=== PATIENT | female | born 1995 ===

== ENCOUNTER 2017-05-03 14:46 | Emergency (ER) | payer MEDICAID ==
[2017-05-03 14:46] VITALS: BMI 29.9
[2017-05-03 15:00] VITALS: BP 152/83; PULSE 112; RESP 19; TEMP 98.9; O2SAT 98
[2017-05-03] MEDS ORDERED: Sodium Chloride 0.9% 1,000 ML IV STA (15:10)
--- NOTE | 2017-05-03 15:22 | ED PDOC ---
HPI: CCC, URI, Sore Throat Time Seen by Provider: 05/03/17 15:04 Chief Complaint (Nursing): Flu-like Symptoms Chief Complaint (Provider): Flu-like Symptoms History Per: Patient History/Exam Limitations: no limitations Onset/Duration Of Symptoms: Days (x4) Current Symptoms Are (Timing): Still Present Additional Complaint(s): 21 year old female with previous medical history of asthma, who presents to the emergency department with a complaint of cough associated with congestion, fever , vomiting, nausea and epigastric pain ongoing for 4 days. Denied any chest pain , shortness of breath, bloody cough, diarrhea, recent travel or sick contacts. Patient was seen at [facility] ED on 04/30/17 for similar symptoms and instructed to continue DayQuil but felt no alleviation of symptoms. PMD: none provided Past Medical History Reviewed: Historical Data, Nursing Documentation, Vital Signs Vital Signs: Last Vital Signs Temp 98.9 F 05/03/17 14:55 Pulse 112 H 05/03/17 14:55 Resp 19 05/03/17 14:55 BP 152/83 H 05/03/17 14:55 Pulse Ox 98 05/03/17 17:14 - Medical History PMH: Asthma, Hypercholesterolemia - Surgical History Surgical History: Tonsillectomy Denies: No Surg Hx - Family History Family History: States: Unknown Family Hx - Social History Current smoker - smoking cessation education provided: No Ex-Smoker (has not smoked in the last 12 months): No Alcohol: None Drugs: Denies - Immunization History Hx Tetanus Toxoid Vaccination: No Hx Influenza Vaccination: No Hx Pneumococcal Vaccination: No - Home Medications Home Medications: Ambulatory Orders Medication Instructions Recorded Benzonatate [Tessalon Perle] 100 mg PO Q8 PRN #30 capsule 05/03/17 Ondansetron ODT [Zofran ODT] 4 mg PO TID #20 odt 05/03/17 - Allergies Allergies/Adverse Reactions: Allergies Allergy/AdvReac Type Severity Reaction Status Date / Time No Known Allergies Allergy Verified 05/03/17 14:55 Review of Systems ROS Statement: Except As Marked, All Systems Reviewed And Found Negative Constitutional: Positive for: Fever ENT: Positive for: Nose Congestion Cardiovascular: Negative for: Chest Pain Respiratory: Positive for: Cough. Negative for: Shortness of Breath, Hemoptysis Gastrointestinal: Positive for: Nausea, Vomiting, Abdominal Pain (epigastric). Negative for: Diarrhea Physical Exam - Reviewed Nursing Documentation Reviewed: Yes Vital Signs Reviewed: Yes - Physical Exam Appears: Positive for: Well, Non-toxic, No Acute Distress Head Exam: Positive for: ATRAUMATIC, NORMAL INSPECTION, NORMOCEPHALIC Skin: Positive for: Normal Color. Negative for: Rash Eye Exam: Positive for: Normal appearance, EOMI, PERRL. Negative for: Nystagmus ENT: Positive for: Normal ENT Inspection, Pharynx Is (within normal limits). Negative for: Nasal Congestion, Pharyngeal Erythema Neck: Positive for: Normal, Painless ROM Cardiovascular/Chest: Positive for: Regular Rate, Rhythm, Chest Non Tender Respiratory: Positive for: Normal Breath Sounds. Negative for: Decreased Breath Sounds, Respiratory Distress Gastrointestinal/Abdominal: Positive for: Normal Exam, Soft. Negative for: Tenderness Back: Positive for: Normal Inspection Extremity: Positive for: Normal ROM Neurologic/Psych: Positive for: Alert (x3), Oriented - Laboratory Results Result Diagrams: 05/03/17 15:55 05/03/17 15:55 - ECG O2 Sat by Pulse Oximetry: 98 (RA) Pulse Ox Interpretation: Normal Medical Decision Making Medical Decision Making: Initial Impression: URI Initial Plan: * VBG * CMP * Lipase * Urine * CBC * CXR * NS 1,000ml IV per 1,000mls/hr * Pepcid 20mg IVP * Zofran inj 4mg IVP * Blood culture * Urinalysis ____ Time: 1643 --CXR FINDINGS: LUNGS: No active pulmonary disease. PLEURA: No significant pleural effusion identified. No pneumothorax apparent. CARDIOVASCULAR: Normal. OSSEOUS STRUCTURES: No significant abnormalities. VISUALIZED UPPER ABDOMEN: Normal. OTHER FINDINGS: None. IMPRESSION: No active disease. Scribe Attestation: Documented by Susu Gonzalez, acting as a scribe for Jaiden Long PA-C. Provider Scribe Attestation: All medical record entries made by the Scribe were at my direction and personally dictated by me. I have reviewed the chart and agree that the record accurately reflects my personal performance of the history, physical exam, medical decision making, and the department course for this patient. I have also personally directed, reviewed, and agree with the discharge instructions and disposition. Disposition - Clinical Impression Clinical Impression: Viral syndrome - Patient ED Disposition Is Patient to be Admitted: No - Disposition Referrals: [facility] [Outside] Disposition: Routine/Home Disposition Time: 17:13 Condition: IMPROVED Prescriptions: Benzonatate [Tessalon Perle] 100 mg PO Q8 PRN #30 capsule PRN Reason: Cough Ondansetron ODT [Zofran ODT] 4 mg PO TID #20 odt Instructions: Viral Syndrome (ED) Forms: [employer] (Fijian), [facility] ED School/Work Excuse Print Language: [place] ISLANDER
[2017-05-03 15:59] LABS: BASO % 0.4 % (0.0-2.0); EOS # 0.2 K/uL (0.0-0.7); EOS % 2.4 % (0.0-4.0); HEMOGLOBIN 10.8 g/dL (12.0-16.0); LYMPH # 1.7 K/uL (1.0-4.3); LYMPH % 21.5 % (20.0-40.0); MEAN CELL VOLUME 72.3 fl (81.0-99.0); MEAN CORPUSCULAR HEMOGLOBIN 22.8 pg (27.0-31.0); MEAN CORPUSCULAR HGB CONC 31.5 g/dL (33.0-37.0); MONO # 0.7 K/uL (0.0-0.8); MONO % 8.6 % (0.0-10.0); NEUT # 5.3 K/uL (1.8-7.0); NEUT % 67.1 % (50.0-75.0); NRBC % 0.1 % (0.0-0.0); RBC 4.73 Mil/uL (3.80-5.20); RED CELL DISTRIBUTION WIDTH 15.6 % (11.5-14.5); WHITE BLOOD COUNT 7.9 K/uL (4.8-10.8)
[2017-05-03 16:05] LABS: SQUAMOUS EPITHIAL 6 /hpf (0-5); URINE BILIRUBIN NEGATIVE (NEGATIVE); URINE BLOOD NEGATIVE (NEGATIVE); URINE CLARITY SLIGHTY-CLOUDY (Clear); URINE COLOR YELLOW (YELLOW); URINE GLUCOSE (UA) NEG (Normal); URINE LEUKOCYTE ESTERASE NEG Leu/uL (Negative); URINE NITRATE NEGATIVE (NEGATIVE); URINE PROTEIN NEGATIVE (NEGATIVE); URINE UROBILINOGEN 0.2-1.0 mg/dL (0.2-1.0)
[2017-05-03 16:07] LABS: VENOUS BLOOD GAS PCO2 45 mmHg (40-60); VENOUS BLOOD GAS PO2 56 mm/Hg (30-55); VENOUS BLOOD PH 7.38 (7.32-7.43)
[2017-05-03 16:18] LABS: ALB/GLOB RATIO 1.2 (1.0-2.1); ALBUMIN 4.3 g/dL (3.5-5.0); ALT/SGPT 36 U/L (9-52); AST/SGOT 23 U/L (14-36); BLOOD UREA NITROGEN 8 mg/dl (7-17); CALCIUM 9.5 mg/dL (8.4-10.2); GFR AFRICAN-AMERICAN > 60; GFR NON-AFRICAN AMERICAN > 60; LIPASE 47 U/L (23-300)
--- NOTE | 2017-05-03 17:08 | RAD ---
HISTORY: cough COMPARISON: No prior. TECHNIQUE: Chest PA and lateral FINDINGS: LUNGS: No active pulmonary disease. PLEURA: No significant pleural effusion identified. No pneumothorax apparent. CARDIOVASCULAR: Normal. OSSEOUS STRUCTURES: No significant abnormalities. VISUALIZED UPPER ABDOMEN: Normal. OTHER FINDINGS: None. IMPRESSION: No active disease.
== END 2017-05-03 17:30 | disposition home or self-care (01) ==
LOC: H.ER 14:46
DX: B34.9 Viral infection, unspecified (principal); E78.00 Pure hypercholesterolemia, unspecified; J45.909 Unspecified asthma, uncomplicated; Z87.891 Personal history of nicotine dependence
CPT/HCPCS: 71020; 80053; 81003; 81025; 82803; 83690; 85025; 87040; 87086; 96361; 96374; 96375; 99282; J2405; J7040

== ENCOUNTER 2017-05-18 19:44 | Emergency (ER) | payer MEDICAID ==
[2017-05-18 19:45] VITALS: BMI 29.9
[2017-05-18 20:14] VITALS: BP 138/84; PULSE 89; RESP 16; TEMP 98; O2SAT 100
[2017-05-18] MEDS ORDERED: Sodium Chloride 0.9% 1,000 ML IV STA (20:37)
--- NOTE | 2017-05-18 21:05 | ED PDOC ---
HPI: Dental Pain/Injury Chief Complaint (Provider): Dental Pain, Nausea, Abdominal Pain, Vomiting History Per: Patient History/Exam Limitations: no limitations Onset/Duration Of Symptoms: Hrs Current Symptoms Are (Timing): Still Present Quality: "Pain" Additional Complaint(s): 21 year old female presenting to the ED complaining of a left lower toothache x1 week. The patient states that she has been taking motrin around the clock which has not offered much relief. She reports that this morning she applied advil liquid gel on the tooth and shortly after took 2 advils by mouth. The patient states that immediately after she developed abdominal epigastric pain, nausea and multiple episodes of vomiting. Patient states her last bowel movement was yesterday. Denies melena, hematochezia, bright red blood per rectum , hematemesis, fever, chest pain, shortness of breath. Non [facility] Provider <Jaiden Long - Last Filed: 05/19/17 00:01> <Donna Guerra PA-C - Last Filed: 05/19/17 01:08> Time Seen by Provider: 05/18/17 20:16 Chief Complaint (Nursing): Dental Pain Past Medical History Reviewed: Historical Data, Nursing Documentation, Vital Signs Vital Signs: Last Vital Signs Temp 98.0 F 05/18/17 20:12 Pulse 89 05/18/17 20:12 Resp 16 05/18/17 20:12 BP 138/84 05/18/17 20:12 Pulse Ox 100 05/18/17 20:12 - Medical History PMH: Asthma, Hypercholesterolemia - Surgical History Surgical History: Tonsillectomy - Family History Family History: States: Unknown Family Hx - Living Arrangements Living Arrangements: With Family - Immunization History Hx Tetanus Toxoid Vaccination: No Hx Influenza Vaccination: No Hx Pneumococcal Vaccination: No <Jaiden Long - Last Filed: 05/19/17 00:01> Vital Signs: Last Vital Signs Temp 98.0 F 05/18/17 20:12 Pulse 89 05/18/17 20:12 Resp 16 05/18/17 20:12 BP 138/84 05/18/17 20:12 Pulse Ox 100 05/19/17 00:02 <Donna Guerra PA-C - Last Filed: 05/19/17 01:08> - Home Medications Home Medications: Ambulatory Orders Medication Instructions Recorded Benzonatate [Tessalon Perle] 100 mg PO Q8 PRN #30 capsule 05/03/17 Ondansetron ODT [Zofran ODT] 4 mg PO TID #20 odt 05/03/17 Amoxicillin [Amoxil 500 mg Cap] 500 mg PO TID #30 cap 05/18/17 Esomeprazole Magnesium [Nexium] 40 mg PO DAILY #30 capsule. 05/19/17 traMADol [Ultram] 25 mg PO BID PRN #14 tab 05/19/17 - Allergies Allergies/Adverse Reactions: Allergies Allergy/AdvReac Type Severity Reaction Status Date / Time No Known Allergies Allergy Verified 05/03/17 14:55 Review of Systems ENT: Positive for: Other (tooth pain) Gastrointestinal: Positive for: Nausea, Vomiting, Abdominal Pain. Negative for : Melena, Hematochezia <Jaiden Long E - Last Filed: 05/19/17 00:01> Physical Exam - Reviewed Nursing Documentation Reviewed: Yes Vital Signs Reviewed: Yes - Physical Exam Appears: Positive for: Non-toxic, No Acute Distress Head Exam: Positive for: NORMAL INSPECTION Skin: Positive for: Normal Color, Warm, Dry. Negative for: Rash Eye Exam: Positive for: Normal appearance, EOMI, PERRL. Negative for: Nystagmus ENT: Positive for: Normal ENT Inspection, Tonsillar Exudate, Other (left lateral incisor with dental carry minimal gingival swelling) Neck: Positive for: Normal, Painless ROM, Supple Cardiovascular/Chest: Positive for: Regular Rate, Rhythm, Chest Non Tender. Negative for: Tachycardia Respiratory: Positive for: Normal Breath Sounds. Negative for: Rales, Rhonchi, Wheezing, Respiratory Distress Gastrointestinal/Abdominal: Positive for: Normal Exam. Negative for: Tenderness , Guarding, Rebound Back: Positive for: Normal Inspection. Negative for: L CVA Tenderness, R CVA Tenderness Extremity: Positive for: Normal ROM. Negative for: Tenderness, Deformity, Swelling Neurologic/Psych: Positive for: Alert, Oriented, Gait <Jaiden Long E - Last Filed: 05/19/17 00:01> - Laboratory Results Result Diagrams: 05/18/17 21:27 05/18/17 21:27 Urine POC: Negative - ECG O2 Sat by Pulse Oximetry: 100 (RA) Pulse Ox Interpretation: Normal - Progress ED Course And Treament: 2150 LFTs are elevated. Pt. states she drinks alcohol occassionally. Reports pain has improved. Abd US ordered. <MercedesJaiden Kodi - Last Filed: 05/19/17 00:01> - Laboratory Results Result Diagrams: 05/18/17 21:27 05/18/17 21:27 <Donna Guerra PA-C - Last Filed: 05/19/17 01:08> Medical Decision Making Medical Decision Makin Initial Impression 21 year old female presenting with toothache, abdominal pain, nausea and vomiting Initial Plan: * CMP * Lipase * Upreg * CBC * Pepcid 40mg PO * Zofran 4mg PO * Reevaluation Documented by Lucy Brandt acting as a scribe for Jaiden Long PA-C. All medical record entries made by the Scribe were at my direction and personally dictated by me. I have reviewed the chart and agree that the record accurately reflects my personal performance of the history, physical exam, medical decision making, and the department course for this patient. I have also personally directed, reviewed, and agree with the discharge instructions and disposition. <Jaiden Long - Last Filed: 05/19/17 00:01> Medical Decision Making: US abdomen : FINDINGS: Liver: The liver is diffusely increased in echogenicity but unremarkable in size. No intrahepatic bile duct dilation. Gallbladder: No acute findings. No gallstones. Common bile duct: No stones. No dilation, measuring 3.7 mm. Pancreas: Visualization of the pancreas is limited by overlying bowel gas. Right kidney: No acute findings. No obstructing stones. No solid mass. No hydronephrosis. The abdominal aorta is non-aneurysmal, the IVC is patent. IMPRESSION: Findings suggesting of fatty infiltration of the liver. Limited evaluation of the pancreas, secondary to overlying bowel gas. Otherwise, unremarkable sonographic evaluation of the right upper quadrant, as detailed above. Dictated and Authenticated by: Yadira Ragsdale MD On re-evaluation, patient reports improvement of symptoms, denies any abdominal pain, nausea or vomiting. On exam, patient remains AAOx3, in no acute distress. Lungs clear to auscultation, cardiac RRR, abdomen soft, non-tender, repeat neuro exam shows no focal findings. Diagnostic results d/w the patient in great detail. Diagnosis of gastritis d/w the patient. Advised to avoid taking nsaids for pain. Based on history, exam and diagnostic results, plan will be for outpatient follow up. Patient instructed to follow-up with pmd and dentist in 1-2 days without fail. Advised to take medication as prescribed. Return to the emergency room at any time for any new or worsening symptoms. Patient states she fully agrees with and understands discharge instructions. States that she agrees with the plan and disposition. Verbalized and repeated discharge instructions and plan. I have given the patient opportunity to ask any additional questions. <Donna Guerra PA-C - Last Filed: 05/19/17 01:08> Disposition - Patient ED Disposition Is Patient to be Admitted: Transfer of Care (Signed out to Charlie CAMPOS pending US report and final disposition.) - Disposition Disposition Time: 00:00 <Jaiden Long - Last Filed: 05/19/17 00:01> - Patient ED Disposition Is Patient to be Admitted: No Counseled Patient/Family Regarding: Studies Performed, Diagnosis, Need For Followup, Rx Given - Disposition Disposition: Routine/Home <Donna Guerra PA-C - Last Filed: 05/19/17 01:08> - Clinical Impression Clinical Impression: Dental caries, Abdominal pain, Transaminitis - Disposition Condition: IMPROVED Additional Instructions: Thank you for letting us take care of you today. You were treated for abdominal pain, gastritis, elevated LFTs, toothache. The emergency medical care you received today was directed at your acute symptoms. If you were prescribed any medication, please fill it and take as directed. It may take several days for your symptoms to resolve. Return to the Emergency Department if your symptoms worsen, do not improve, or if you have any other problems. Please contact your doctor and the dentist in 2 days for re-evaluation and follow up. Bring any paperwork you were given at discharge with you along with any medications you are taking to your follow up visit. Our treatment cannot replace ongoing medical care by a primary care provider (PCP) outside of the emergency department. Thank you for allowing the [facility] team to be part of your care today. Prescriptions: Amoxicillin [Amoxil 500 mg Cap] 500 mg PO TID #30 cap Esomeprazole Magnesium [Nexium] 40 mg PO DAILY #30 capsule. traMADol [Ultram] 25 mg PO BID PRN #14 tab PRN Reason: Pain, Moderate (4-7) Instructions: Gastritis (ED), Toothache (ED) Forms: [employer] (Wallisian), [facility] ED School/Work Excuse Print Language: AMHARIC - PA / MATERIAL HANDLING TECHNICIAN / Resident Statement MD/DO has reviewed & agrees with the documentation as recorded. <Charlie CAMPOS,Donna Ramsay - Last Filed: 05/19/17 01:08>
[2017-05-18 21:31] LABS: BASO # 0.1 K/uL (0.0-0.2); BASO % 0.6 % (0.0-2.0); EOS # 0.2 K/uL (0.0-0.7); EOS % 1.4 % (0.0-4.0); HEMOGLOBIN 10.9 g/dL (12.0-16.0); LYMPH # 2.1 K/uL (1.0-4.3); LYMPH % 18.8 % (20.0-40.0); MEAN CELL VOLUME 71.3 fl (81.0-99.0); MEAN CORPUSCULAR HEMOGLOBIN 22.4 pg (27.0-31.0); MEAN CORPUSCULAR HGB CONC 31.5 g/dL (33.0-37.0); MEAN PLATELET VOLUME 7.1 fl (7.2-11.7); MONO # 0.8 K/uL (0.0-0.8); MONO % 6.8 % (0.0-10.0); NEUT # 8.2 K/uL (1.8-7.0); NEUT % 72.4 % (50.0-75.0); NRBC % 0.2 % (0.0-0.0); RBC 4.86 Mil/uL (3.80-5.20); RED CELL DISTRIBUTION WIDTH 15.9 % (11.5-14.5); WHITE BLOOD COUNT 11.3 K/uL (4.8-10.8)
[2017-05-18 21:50] LABS: ALB/GLOB RATIO 1.1 (1.0-2.1); ALBUMIN 4.4 g/dL (3.5-5.0); AST/SGOT 74 U/L (14-36); BLOOD UREA NITROGEN 10 mg/dl (7-17); CALCIUM 9.6 mg/dL (8.4-10.2); GFR AFRICAN-AMERICAN > 60; GFR NON-AFRICAN AMERICAN > 60
[2017-05-18 21:51] LABS: ALT/SGPT 106 U/L (9-52); LIPASE 62 U/L (23-300)
--- NOTE | 2017-05-19 08:53 | US ---
HISTORY: epigastric pain, elevated liver enzymes COMPARISON: None. TECHNIQUE: Sonographic evaluation of the right upper quadrant of the abdomen. FINDINGS: LIVER: Measures 16.3 cm in length, upper limits of normal. Increased echogenicity of the liver parenchyma. No mass. No intrahepatic bile duct dilatation. GALLBLADDER: Unremarkable. No gallstones. COMMON BILE DUCT: Measures 4 mm. No stones. No dilatation. PANCREAS: Unremarkable as visualized. No mass. No ductal dilatation. RIGHT KIDNEY: Measures clinical 0.9 x 6.3 x 4.6 cm in length. Normal echogenicity. No calculus, mass, or hydronephrosis. AORTA: No aneurysmal dilatation. IVC: Unremarkable. OTHER FINDINGS: None . IMPRESSION: Hepatic steatosis
== END 2017-05-19 01:37 | disposition home or self-care (01) ==
LOC: H.ER 19:44
DX: K29.70 Gastritis, unspecified, without bleeding (principal); K02.9 Dental caries, unspecified; E78.00 Pure hypercholesterolemia, unspecified; J45.909 Unspecified asthma, uncomplicated; K76.0 Fatty (change of) liver, not elsewhere classified

== ENCOUNTER 2018-05-07 01:18 | Emergency (ER) | payer MEDICAID, OTHER ==
[2018-05-07 01:19] VITALS: BMI 29.9
[2018-05-07 01:45] VITALS: RESP 16
[2018-05-07] MEDS ORDERED: Albuterol-Ipratrop 3 mg / 0.5 (3 ml) UD INH STA (05:21)
[2018-05-07] MEDS ORDERED: Sodium Chloride 0.9% 1,000 ML IV SCH (05:30)
--- NOTE | 2018-05-07 05:34 | ED PDOC ---
HPI: CCC, URI, Sore Throat Time Seen by Provider: 05/07/18 04:02 Chief Complaint (Nursing): Cough, Cold, Congestion Chief Complaint (Provider): cough, fever, n/v History Per: Patient History/Exam Limitations: no limitations Onset/Duration Of Symptoms: Days Current Symptoms Are (Timing): Still Present Additional Complaint(s): 22 y/o Female with hx of asthma and HL who presents with cough, fever, N/V. Patient states that about 3 weeks ago she began having runny nose, nasal congestion, sore throat and cough. She used over the counter cough medication with improvement in her symptoms. She said the cough returned about 3 days ago and is dry but has been using OTC cough medication, DayQuil and NyQuil with no improvement. She said that she has also had N/V for the past week, vomiting everything that she eats. Sometimes it is post-tussive, but also occurs after eating. She has chest pain that occurs with coughing. Denies fever, dizziness, palpitations, abdominal pain, radiation of chest pain. Mild SOB intermittently. No diarrhea. Past Medical History Reviewed: Historical Data, Nursing Documentation, Vital Signs Vital Signs: Last Vital Signs Temp 98.3 F 05/07/18 01:42 Pulse 86 05/07/18 01:42 Resp 16 05/07/18 01:42 BP 144/91 H 05/07/18 01:42 Pulse Ox 100 05/07/18 01:42 - Medical History PMH: Asthma, Hypercholesterolemia - Surgical History Surgical History: Tonsillectomy - Family History Family History: States: Unknown Family Hx - Immunization History Hx Tetanus Toxoid Vaccination: No Hx Influenza Vaccination: No Hx Pneumococcal Vaccination: No - Home Medications Home Medications: Ambulatory Orders Medication Instructions Recorded Benzonatate [Tessalon Perle] 100 mg PO Q8 PRN #30 capsule 05/03/17 Ondansetron ODT [Zofran ODT] 4 mg PO TID #20 odt 05/03/17 Amoxicillin [Amoxil 500 mg Cap] 500 mg PO TID #30 cap 05/18/17 Esomeprazole Magnesium [Nexium] 40 mg PO DAILY #30 capsule. 05/19/17 traMADol [Ultram] 25 mg PO BID PRN #14 tab 05/19/17 - Allergies Allergies/Adverse Reactions: Allergies Allergy/AdvReac Type Severity Reaction Status Date / Time latex Allergy RASH Verified 05/07/18 01:41 Physical Exam - Reviewed Nursing Documentation Reviewed: Yes Vital Signs Reviewed: Yes - Physical Exam Appears: Positive for: Non-toxic Head Exam: Positive for: ATRAUMATIC Skin: Positive for: Normal Color Eye Exam: Positive for: Normal appearance ENT: Positive for: TM Is/Are (normal), Pharyngeal Erythema (mild). Negative for: Sinus Pain/Drainage Neck: Positive for: Normal Cardiovascular/Chest: Positive for: Regular Rate, Rhythm Respiratory: Positive for: Normal Breath Sounds Gastrointestinal/Abdominal: Positive for: Normal Exam. Negative for: Tenderness, Guarding, Rebound Lymphatic: Positive for: Normal Exam Neurologic/Psych: Positive for: Alert, Oriented - Laboratory Results Result Diagrams: 05/07/18 05:35 05/07/18 05:35 - ECG O2 Sat by Pulse Oximetry: 100 Medical Decision Making Medical Decision Making: CBC, CMP 1L Normal saline bolus CXR Duoneb x 1 Zofran 4mg IV EKG CXR: No active disease. No interval pathology noted. EKG: sinus with sinus arrhythmia, HR 84, no ischemic change. PO challenge Pt endorsed to Dr. Crain pending PO challenge. Disposition - Clinical Impression Clinical Impression: Viral illness - Patient ED Disposition Is Patient to be Admitted: Transfer of Care (Dr. Crain) - Disposition Disposition: Transfer of Care Disposition Time: 08:15 Condition: FAIR Forms: [employer] (Turkmen)
[2018-05-07 06:04] LABS: BASO % 0.3 % (0.0-2.0); EOS # 0.2 K/uL (0.0-0.7); EOS % 2.4 % (0.0-4.0); HEMOGLOBIN 11.4 g/dL (12.0-16.0); LYMPH # 3.5 K/uL (1.0-4.3); LYMPH % 36.3 % (20.0-40.0); MEAN CELL VOLUME 73.1 fl (81.0-99.0); MEAN CORPUSCULAR HEMOGLOBIN 23.6 pg (27.0-31.0); MEAN CORPUSCULAR HGB CONC 32.3 g/dL (33.0-37.0); MEAN PLATELET VOLUME 7.6 fl (7.2-11.7); MONO # 0.7 K/uL (0.0-0.8); MONO % 6.9 % (0.0-10.0); NEUT # 5.2 K/uL (1.8-7.0); NEUT % 54.1 % (50.0-75.0); NRBC % 0.1 % (0.0-0.0); RBC 4.85 Mil/uL (3.80-5.20); RED CELL DISTRIBUTION WIDTH 17.6 % (11.5-14.5); WHITE BLOOD COUNT 9.7 K/uL (4.8-10.8)
[2018-05-07 06:15] LABS: ALB/GLOB RATIO 1.1 (1.0-2.1); ALBUMIN 4.4 g/dL (3.5-5.0); ALT/SGPT 33 U/L (9-52); AST/SGOT 33 U/L (14-36); BLOOD UREA NITROGEN 10 mg/dl (7-17); CALCIUM 9.4 mg/dL (8.4-10.2); GFR NON-AFRICAN AMERICAN > 60
--- NOTE | 2018-05-07 07:45 | RAD ---
Date of service: 05/07/2018 HISTORY: shortness of breath, cough COMPARISON: 05/03/2017 TECHNIQUE: Chest PA and lateral FINDINGS: LUNGS: No active pulmonary disease. PLEURA: No significant pleural effusion identified. No pneumothorax apparent. CARDIOVASCULAR: No aortic atherosclerotic calcification present. Normal cardiac size. No pulmonary vascular congestion. OSSEOUS STRUCTURES: No significant abnormalities. VISUALIZED UPPER ABDOMEN: Normal. OTHER FINDINGS: None. IMPRESSION: No active disease. No interval pathology noted.
--- NOTE | 2018-05-07 09:21 | ED PDOC ---
- Laboratory Results Result Diagrams: 05/07/18 05:35 05/07/18 05:35 - ECG O2 Sat by Pulse Oximetry: 100 - Progress Re-evaluation Time: 09:20 Condition: Improved (Tolerated PO) Disposition - Clinical Impression Clinical Impression: Viral illness, URI (upper respiratory infection) - POA Present On Arrival: None - Disposition Referrals: [facility] [Outside] Disposition: Routine/Home Disposition Time: 09:20 Condition: FAIR Prescriptions: Albuterol HFA [Ventolin HFA 90 mcg/actuation (8 g)] 2 puff IH Q4H #1 puff Ondansetron [Zofran] 4 mg PO Q8H #10 tab Instructions: Viral Upper Respiratory Infection, Adult (DC), Viral Gastroenteritis Forms: [employer] (Occitan)
[2018-05-07 09:34] VITALS: BP 110/59; PULSE 90; TEMP 97.9; O2SAT 98
--- NOTE | 2018-05-08 07:47 | CARD ---
APPROVED REPORT Date of service: 05/07/2018 EKG Measurement Heart [id number] <Conclusion> Normal sinus rhythm with sinus arrhythmia Normal ECG
== END 2018-05-07 09:42 | disposition home or self-care (01) ==
LOC: H.ER 01:18
DX: J06.9 Acute upper respiratory infection, unspecified (principal); B34.9 Viral infection, unspecified
CPT/HCPCS: 71046; 80053; 85025; 87070; 87430; 87804; 93005; 96361; 96374; 99285; J2405; J7030

== ENCOUNTER 2018-05-09 14:01 | Emergency (ER) | payer OTHER ==
[2018-05-09 14:01] VITALS: BMI 29.9
[2018-05-09] MEDS ORDERED: Sodium Chloride 0.9% 1,000 ML IV STA (15:49)
[2018-05-09] MEDS ORDERED: Promethazine/Cod 6.25mg-10mg/5ml Syr UD PO STA (15:49)
[2018-05-09 16:14] LABS: BASO % 0.4 % (0.0-2.0); EOS # 0.1 K/uL (0.0-0.7); EOS % 1.1 % (0.0-4.0); HEMOGLOBIN 11.4 g/dL (12.0-16.0); LYMPH # 2.1 K/uL (1.0-4.3); LYMPH % 21.1 % (20.0-40.0); MEAN CELL VOLUME 74.3 fl (81.0-99.0); MEAN CORPUSCULAR HEMOGLOBIN 23.7 pg (27.0-31.0); MEAN CORPUSCULAR HGB CONC 31.9 g/dL (33.0-37.0); MEAN PLATELET VOLUME 7.3 fl (7.2-11.7); MONO # 0.5 K/uL (0.0-0.8); MONO % 4.7 % (0.0-10.0); NEUT # 7.2 K/uL (1.8-7.0); NEUT % 72.7 % (50.0-75.0); RBC 4.82 Mil/uL (3.80-5.20); RED CELL DISTRIBUTION WIDTH 17.9 % (11.5-14.5); WHITE BLOOD COUNT 9.9 K/uL (4.8-10.8)
[2018-05-09] MEDS ORDERED: Promethazine/Cod 6.25mg-10mg/5ml Syr UD ONE (16:19)
[2018-05-09] MEDS ORDERED: Albuterol-Ipratrop 3 mg / 0.5 (3 ml) UD ONE (16:20)
[2018-05-09] MEDS: Albuterol-Ipratrop 3 mg / 0.5 (3 ml) UD INH STA (16:29)
--- NOTE | 2018-05-09 16:31 | ED PDOC ---
HPI: CCC, URI, Sore Throat Time Seen by Provider: 05/09/18 15:21 Chief Complaint (Nursing): Weakness/Neurological Deficit Chief Complaint (Provider): Cough, vomiting and dizziness History Per: Patient History/Exam Limitations: no limitations Onset/Duration Of Symptoms: Days (x 5) Current Symptoms Are (Timing): Still Present Associated Symptoms: Cough, Vomiting Additional Complaint(s): 22 year old female presents to the ED with dry cough, non-bloody, non-bilious vomiting and chest tightness for 5 days. She is unable to tolerate liquids and f ood. Patient also reports congestion as well as dizziness today while at work. She was seen in this ED two days ago for similar symptoms and was discharged with Zofran and albuterol with no improvement since. Patient reports she initially had a fever that has since resolved. Denies diarrhea and runny nose. PMD: none provided Past Medical History Reviewed: Historical Data, Nursing Documentation, Vital Signs Vital Signs: Last Vital Signs Temp 98.2 F 05/09/18 14:40 Pulse 102 H 05/09/18 14:40 Resp 20 05/09/18 14:40 BP 134/75 05/09/18 14:40 Pulse Ox 96 05/09/18 14:40 - Medical History PMH: Asthma, Hypercholesterolemia - Surgical History Surgical History: Tonsillectomy - Family History Family History: States: Unknown Family Hx - Social History Current smoker - smoking cessation education provided: Yes - Immunization History Hx Tetanus Toxoid Vaccination: No Hx Influenza Vaccination: No Hx Pneumococcal Vaccination: No - Home Medications Home Medications: Ambulatory Orders Medication Instructions Recorded Benzonatate [Tessalon Perle] 100 mg PO Q8 PRN #30 capsule 05/03/17 Ondansetron ODT [Zofran ODT] 4 mg PO TID #20 odt 05/03/17 RX: Amoxicillin [Amoxil 500 mg Cap] 500 mg PO TID #30 cap 05/18/17 Esomeprazole Magnesium [Nexium] 40 mg PO DAILY #30 capsule. 05/19/17 RX: traMADol [Ultram] 25 mg PO BID PRN #14 tab 05/19/17 Ondansetron [Zofran] 4 mg PO Q8H #10 tab 05/07/18 RX: Albuterol HFA [Ventolin HFA 90 2 puff IH Q4H #1 puff 05/07/18 mcg/actuation (8 g)] RX: Azithromycin [Zithromax] 250 mg PO DAILY #6 dose 05/09/18 RX: Prednisone 50 mg PO DAILY #4 tablet 05/09/18 RX: Promethazine DM [Phenergan DM 10 ml PO Q6 PRN #120 ml 05/09/18 Syrup] - Allergies Allergies/Adverse Reactions: Allergies Allergy/AdvReac Type Severity Reaction Status Date / Time latex Allergy RASH Verified 05/09/18 14:40 Review of Systems ROS Statement: Except As Marked, All Systems Reviewed And Found Negative Constitutional: Positive for: Other (decreased PO intake). Negative for: Fever ENT: Positive for: Nose Congestion. Negative for: Nose Discharge Cardiovascular: Positive for: Chest Pain (tightness) Respiratory: Positive for: Cough (dry). Negative for: Shortness of Breath, Hemoptysis Gastrointestinal: Positive for: Vomiting (nb nb). Negative for: Abdominal Pain, Diarrhea Physical Exam - Reviewed Nursing Documentation Reviewed: Yes Vital Signs Reviewed: Yes - Physical Exam Appears: Positive for: Well, No Acute Distress Head Exam: Positive for: ATRAUMATIC, NORMAL INSPECTION, NORMOCEPHALIC Skin: Positive for: Warm, Dry Eye Exam: Positive for: EOMI, PERRL ENT: Positive for: Pharyngeal Erythema (with no exudate), Other (boggy nasal membranes) Neck: Positive for: Painless ROM, Supple Cardiovascular/Chest: Positive for: Regular Rate, Rhythm. Negative for: Murmur Respiratory: Positive for: Normal Breath Sounds (lungs clear), Other (spasmodic cough in the ED). Negative for: Respiratory Distress Gastrointestinal/Abdominal: Positive for: Normal Exam, Soft. Negative for: Tenderness Back: Positive for: Normal Inspection. Negative for: Decreased ROM Extremity: Positive for: Normal ROM. Negative for: Deformity Lymphatic: Negative for: Adenopathy Neurologic/Psych: Positive for: Alert. Negative for: Motor/Sensory Deficits - Laboratory Results Result Diagrams: 05/09/18 16:00 05/09/18 16:00 - ECG O2 Sat by Pulse Oximetry: 96 (RA) Pulse Ox Interpretation: Normal Medical Decision Making Medical Decision Makin:48 Impression: bronchitis and vomiting Differential diagnoses include but are not limited to: viral syndrome, dehydration, electrolyte abnormalities, pneumonia and gastroenteritis Initial Plan: --CMP --CBC --Lipase --Lactic acid --EKG --Urine dip --Urine preg --Phenergen/Codeine 5ml PO --NS IV --Solumedrol 125 mg IVP --Duoneb 3 ml INh --Peak flow pre/post --Influenza AB --rapid strep Labs unremarkable. CXR no acute findings Pt stable for discharge. advised rest, fluids, followup clinic/pmd. Scribe Attestation: Documented by Ivonne Nickerson, acting as a scribe for Chula Mauricio MD Provider Scribe Attestation: All medical record entries made by the Scribe were at my direction and personally dictated by me. I have reviewed the chart and agree that the record accurately reflects my personal performance of the history, physical exam, medical decision making, and the department course for this patient. I have also personally directed, reviewed, and agree with the discharge instructions and disposition. Disposition - Clinical Impression Clinical Impression: Bronchitis, Vomiting - Disposition Referrals: [facility] [Outside] - 05/12/18 (FOLLOW UP WITH YOUR DOCTOR OR [facility] SATURDAY FOR REEVALUATION) Disposition: Routine/Home Disposition Time: 18:00 Condition: STABLE Prescriptions: RX: Azithromycin [Zithromax] 250 mg PO DAILY #6 dose RX: Prednisone 50 mg PO DAILY #4 tablet RX: Promethazine DM [Phenergan DM Syrup] 10 ml PO Q6 PRN #120 ml PRN Reason: SEVERE COUGH ONLY Instructions: Acute Bronchitis, Adult (DC) Forms: [facility] ED School/Work Excuse
[2018-05-09 16:38] LABS: ALB/GLOB RATIO 1.1 (1.0-2.1); ALBUMIN 4.4 g/dL (3.5-5.0); ALT/SGPT 26 U/L (9-52); AST/SGOT 22 U/L (14-36); BLOOD UREA NITROGEN 8 mg/dl (7-17); CALCIUM 9.6 mg/dL (8.4-10.2); GFR NON-AFRICAN AMERICAN > 60; LIPASE 41 U/L (23-300)
--- NOTE | 2018-05-09 17:55 | RAD ---
Date of service: 05/09/2018 HISTORY: cough vomiting COMPARISON: 05/07/2008. TECHNIQUE: Chest PA and lateral FINDINGS: LUNGS: No active pulmonary disease. PLEURA: No significant pleural effusion identified. No pneumothorax apparent. CARDIOVASCULAR: No aortic atherosclerotic calcification present. Normal cardiac size. No pulmonary vascular congestion. OSSEOUS STRUCTURES: No significant abnormalities. VISUALIZED UPPER ABDOMEN: Normal. OTHER FINDINGS: None. IMPRESSION: No active disease. No significant interval change compared to the prior examination(s).
[2018-05-09 19:50] VITALS: BP 96/53; PULSE 91; RESP 16; TEMP 98.3
[2018-05-11 15:06] VITALS: O2SAT 96
== END 2018-05-09 20:00 | disposition home or self-care (01) ==
LOC: H.ER 14:01
DX: J40 Bronchitis, not specified as acute or chronic (principal); R11.10 Vomiting, unspecified; F17.200 Nicotine dependence, unspecified, uncomplicated; J45.909 Unspecified asthma, uncomplicated; E78.00 Pure hypercholesterolemia, unspecified
CPT/HCPCS: 71046; 80053; 81025; 83605; 83690; 85025; 87040; 87430; 87804; 96374; 99285; J2930; J7030